=== PATIENT | male | born 1990 ===

== ENCOUNTER 2023-08-04 11:52 | Emergency (ER) | payer SELFPAY ==
[2023-08-04 13:14] VITALS: BP 148/91; PULSE 91; RESP 18; TEMP 36.4; O2SAT 100; BMI 45.5
--- NOTE | 2023-08-04 13:15 | ED_ITS ---
HPI - Eye Problem General Chief complaint: Eye Problems Stated complaint: FO in L eye work inj Related Data Allergies Allergy/AdvReac Type Severity Reaction Status Date / Time No Known Allergies Allergy Verified 08/04/23 13:13 [facility] Social History Social History Advance Directives: No Advance Directives Information Provided: No Physical Exam Vital Signs: Vital Signs: Last Vital Signs Temp 97.5 F 08/04/23 13:14 Pulse 91 08/04/23 13:14 Resp 18 08/04/23 13:14 BP 148/91 H 08/04/23 13:14 Pulse Ox 100 08/04/23 13:14 O2 Del Method Room Air 08/04/23 13:14 BMI result Body Mass Index 45.5 Course Course Course Narrative: This is an RME: Additional HPI, ROS, PE not included below will be deferred to primary provider. This is a 25-rdct-erg-male, with a hx of HS, presenting to the ER with a complaint of left eye ?foreign body. patient states that he was work today and felt something going to his eye. He was working with metal and glass, he is unsure what got into his eye. He has had intermittent blurred vision. He states that his vision is not blurred right now. denies any eye pain. No obvious foreign body seen. Plan: likely will need a fluorescein stain. Reevaluation(s) Reevaluation #1: pt left prior to completing treatment. Discharge Plan Discharge Clinical Impression: Eye irritation Patient Disposition: Left W/O Completing Treatment Discharge Date/Time: 08/04/23 16:35
== END 2023-08-04 16:35 | disposition left against medical advice (07) ==
PROVIDERS: Emergency Provider Emergency Medicine
DX: H57.12 Ocular pain, left eye (principal); S05.8X2A Other injuries of left eye and orbit, initial encounter; X58.XXXA Exposure to other specified factors, initial encounter; Y93.9 Activity, unspecified; Y92.9 Unspecified place or not applicable; Y99.0 Civilian activity done for income or pay
CPT/HCPCS: 99281; 99283